=== PATIENT | male | born 1955 | race Caucasian/White ===

== ENCOUNTER → 2023-10-07 09:49 | Outpatient (BNVA) | payer MEDICARE, OTHER, SELFPAY | PROVIDERS: PCP Family Medicine; Visit Provider Family Medicine | DX: I10 Essential (primary) hypertension (principal) | CPT/HCPCS: 80053; 80061; 85025 ==

== ENCOUNTER → 2024-03-10 09:18 | Outpatient (BNVA) | payer MEDICARE, OTHER, SELFPAY | PROVIDERS: PCP Family Medicine; Visit Provider Student in an Organized Health Care Education/Training Program | DX: G56.91 Unspecified mononeuropathy of right upper limb (principal); M25.522 Pain in left elbow; M77.10 Lateral epicondylitis, unspecified elbow; M77.12 Lateral epicondylitis, left elbow; R20.0 Anesthesia of skin; R20.2 Paresthesia of skin; M79.643 Pain in unspecified hand | CPT/HCPCS: 20605; 73080; 73130; 99204; J3301; J3490 ==

== ENCOUNTER → 2024-05-09 08:42 | Outpatient (BNVA) | payer MEDICARE, OTHER, SELFPAY | PROVIDERS: PCP Family Medicine; Referring Provider Student in an Organized Health Care Education/Training Program; Visit Provider Specialist | DX: R20.0 Anesthesia of skin (principal); R20.2 Paresthesia of skin; M77.12 Lateral epicondylitis, left elbow; G56.91 Unspecified mononeuropathy of right upper limb | CPT/HCPCS: 95911 ==

== ENCOUNTER → 2024-05-18 13:55 | Outpatient (BNVA) | payer MEDICARE, OTHER, SELFPAY | PROVIDERS: PCP Family Medicine; Visit Provider Family Medicine | DX: I10 Essential (primary) hypertension (principal); N40.0 Benign prostatic hyperplasia without lower urinary tract symptoms | CPT/HCPCS: 80053; 84153 ==

== ENCOUNTER 2024-06-27 14:15 | Outpatient (CLI) | payer MEDICARE, OTHER, SELFPAY | END 2024-06-27 14:16 | disposition home or self-care (01) | LOC: SPT 14:17 | PROVIDERS: PCP Family Medicine; Visit Provider Student in an Organized Health Care Education/Training Program | DX: Z46.89 Encounter for fitting and adjustment of other specified devices (principal); R20.0 Anesthesia of skin; R20.2 Paresthesia of skin | CPT/HCPCS: 20605; J3301; J3490; L3908 ==

== ENCOUNTER → 2025-04-18 14:30 | Outpatient (BNVA) | payer MEDICARE, OTHER, SELFPAY | PROVIDERS: PCP Family Medicine; Visit Provider Family Medicine | DX: I10 Essential (primary) hypertension (principal); N40.0 Benign prostatic hyperplasia without lower urinary tract symptoms; Z12.5 Encounter for screening for malignant neoplasm of prostate | CPT/HCPCS: 80053; 80061; 84153; 84439; 84443; 85025 ==